=== PATIENT | female | born 1960 | race Caucasian/White ===

== ENCOUNTER → 2017-12-08 10:54 | Outpatient (CLI) | payer MEDICAID, SELFPAY ==
--- NOTE | 2017-12-08 11:00 | MRI_ITS ---
STUDY: MRI RIGHT KNEE REASON FOR EXAM: Right posterior knee pain for 5 months, no specific injury. TECHNIQUE: Standardized fat and water weighted pulse sequences were obtained in all 3 orthogonal planes. COMPARISON: None. FINDINGS: There is a complex tear of the posterior horn of the medial meniscus (proton-density sagittal images 30-38) including a radial component (T2 coronal images 15, 16). There is peripheral subluxation of the medial meniscus. There is arthrosis of the medial femorotibial compartment with small marginal osteophytes and partial-thickness chondral loss (T2 sagittal image 19). There is mild subchondral bone edema of the medial tibial plateau and medial femoral condyle (T2 coronal images 16-22), a stress phenomenon. Normal medial collateral ligamentous complex (MCL). Normal distal semimembranosus, gracilis and semitendinosus tendons. Normal lateral meniscus. Normal hyaline cartilage of the lateral femorotibial compartment. Normal lateral femoral condyle and tibial plateau. Normal proximal tibiofibular articulation. Normal lateral collateral (fibular) ligament. Normal popliteus tendon. Normal biceps femoris tendon. There is a mesial osteophyte of the lateral femoral condyle abutting the anterior cruciate ligament (series 8 images 11, 12) without morphologic abnormality of the ligament. Normal posterior cruciate ligament (PCL). Normal congruent patellofemoral articulation. There is arthrosis of the patellofemoral compartment with partial-thickness chondral loss (T2 sagittal image 15) and a small subchondral cyst of the lateral patellar facet. Normal medial and lateral patellar retinaculum. Normal visualized quadriceps tendon. Normal patellar tendon. Normal Hoffa's fat pad. There is a moderate-sized joint effusion. There is edema in the subcutis adipose space. There is a minimal popliteal cyst (T2 coronal image 8). The otherwise visualized osseous structures are unremarkable. MRI/Lower Ext Joint Only (Routine) IMPRESSION: Medial meniscal tear. Arthrosis of the medial femorotibial and patellofemoral compartments. Mild subchondral bone edema of the medial tibial plateau and medial femoral condyle, a stress phenomenon. Joint effusion. Electronically Signed: Gadiel Campos MD at 13:25 EDT Tel , Service support ,
== END ==
PROVIDERS: Family Provider Family Medicine; PCP Family Medicine; Visit Provider Family Medicine
DX: M25.561 Pain in right knee (principal)
CPT/HCPCS: 73721

== ENCOUNTER → 2018-06-22 10:18 | Outpatient (CLI) | payer MEDICAID, SELFPAY ==
[2018-06-22 12:18] LABS: Hematocrit 42.5 % (37-47); Hemoglobin 13.8 g/dl (12.0-15.0); Mean Corp Hgb Conc 32.5 g/gl (32-36); Mean Corpuscular Hgb 29.7 pg (27.0-32.0); Mean Corpuscular Volume 91.4 fL (81-99); Platelet Count 171 K/mm3 (150-450); RBC Distribution Width SD 43.1 fl (35.1-43.9); Red Blood Count 4.65 M/mm3 (4.2-5.4); White Blood Count 5.5 K/mm3 (4.4-11.0)
[2018-06-22 12:19] LABS: Absolute Lymphocyte Count 1.53 X10^3/ul (0.83-4.51); Absolute Neutrophil Count 3.6 X10^3/uL (2.0-7.7); Basophil# 0.03 X10^3/uL; Basophil% 0.5 % (0-1); Eosinophil# 0.07 X10^3/uL; Eosinophils% 1.3 % (0-5); Lymphocyte # 1.53 X10^3/ul (4.0); Lymphocyte % 27.7 % (19-41); Monocyte# 0.33 X10^3/uL; Neutrophil # 3.56 X10^3/uL (2.7-7.7); Neutrophil % 64.5 % (47-70); POSITIVE COUNT NO; POSITIVE DIFFERENTIAL NO; POSITIVE MORPHOLOGY NO
[2018-06-22 13:00] LABS: T3 Total - Triiodothyronine 1.01 ng/mL (0.6-1.81)
[2018-06-22 13:05] LABS: ALB/GLOB Ratio 1.2 RATIO (0.9-2.4); AST(SGOT) 29 U/L (15-37); Alanine Aminotransfer ALT/SGPT 34 U/L (13-56); Albumin, Serum 3.8 g/dL (3.2-5.0); Alkaline Phosphatase 104 U/L (45-117); Anion Gap 6 (5-15); BUN 11 mg/dL (7-18); BUN/Creat Ratio 12.4 RATIO (10-20); Calcium,Total 8.9 mg/dL (8.5-10.1); Chloride 99 mmol/L (98-107); Cholesterol 165 mg/dL (200); Creatinine, Serum 0.89 mg/dL (0.55-1.02); EST Glomerular Filtration Rate 69 mL/min (>60); Est Glom Filt Rate - Afr Amer 84 mL/min (>60); Globulin 3.3 g/dL (2.2-4.2); Glucose 218 mg/dL (74-106); High Density Lipoprotein 33 mg/dL; Potassium 4.2 mmol/L (3.5-5.1); Protein, Total 7.1 g/dL (6.4-8.2); Sodium Level 132 mmol/L (136-145); T4 Free Direct 1.35 ng/dL (0.76-1.46); Thyroid Stim Hormone (TSH) 1.94 uIU/mL (0.358-3.74); Triglycerides 180 mg/dL; Very Low Density Lipoprotein 36 mg/dL (5-40)
== END ==
PROVIDERS: Family Provider Family Medicine; PCP Family Medicine; Referring Provider Family Medicine; Visit Provider Family Medicine
DX: E11.9 Type 2 diabetes mellitus without complications (principal); E03.9 Hypothyroidism, unspecified; E78.5 Hyperlipidemia, unspecified; Z51.81 Encounter for therapeutic drug level monitoring
CPT/HCPCS: 36415; 80053; 80061; 84439; 84443; 84480; 85025

== ENCOUNTER → 2018-07-22 07:28 | Outpatient (CLI) | payer MEDICAID, SELFPAY ==
--- NOTE | 2018-07-22 07:31 | BI_ITS ---
MAMMOGRAPHY - BILATERAL SCREENING REASON FOR EXAM: Female, 58 years old. Routine annual screening examination. PERTINENT HISTORY: Aunt with breast cancer. TECHNIQUE: Digital bilateral breast marlo (3D mammographic acquisition) in the CC and MLO projections. 2-D mediolateral oblique (MLO) and craniocaudad (CC) views of both breasts were obtained. CAD: Full Field Digital Mammography with Computer Added Detection was performed. COMPARISON: Comparison is made with prior examination dated August 22, 2015 and August 14, 2014. FINDINGS: Breast Composition: The breasts are heterogeneously dense, which may obscure small masses. There are no dominant masses or suspicious calcifications. Stable benign-appearing bilateral axillary lymph nodes. No other significant abnormalities are identified. There has been no significant change since the prior study. BI/SCREENING MAMM (CAD), BILAT IMPRESSION: Stable bilateral screening mammogram. Yearly follow-up mammogram recommended. (A) ASSESSMENT CATEGORY: BIRADS Category 2: Benign. A letter regarding these results will be sent to the patient by the facility within 30 days. Approximately 10% of breast cancers are not detected by mammography. A normal mammogram should not delay biopsy of a clinically suspicious abnormality. [id number] Electronically Signed: Cam Santana MD at 14:31 EST Tel [phone], Service support ,
== END ==
PROVIDERS: Family Provider Family Medicine; PCP Family Medicine; Referring Provider Family Medicine; Visit Provider Family Medicine
DX: Z12.31 Encounter for screening mammogram for malignant neoplasm of breast (principal)
CPT/HCPCS: 77063; 77067

== ENCOUNTER → 2018-08-19 13:41 | Outpatient (CLI) | payer MEDICAID, SELFPAY | PROVIDERS: Family Provider Family Medicine; PCP Family Medicine; Referring Provider Surgery; Visit Provider Surgery | DX: Z53.9 Procedure and treatment not carried out, unspecified reason (principal) ==

== ENCOUNTER 2018-12-19 06:58 | Day surgery (SDC) | payer MEDICAID, SELFPAY ==
[2018-12-19 07:29] VITALS: BP 149/97; PULSE 75; RESP 16; TEMP 36.1; O2SAT 96; BMI 40.5
[2018-12-19 07:50] LABS: Bedside Glucose 110 mg/dL (70-110)
--- NOTE | 2018-12-19 08:15 | PCM.HP.STD ---
Problem List (1) Family history of colon cancer Status: Acute History of Present Illness Date of Admission: 12/19/18 The patient is a 58 year old F evaluation for colonoscopy. Patient had her last colonoscopy done approximately [address] Blount at the [facility]. She has a family history of a brother with colon cancer. Her last colonoscopy was negative. Past Medical History Past Medical History (Chronic Problems): Chronic Problems (Last Reviewed 10/07/17 @ 10:43 by Natalie Motta) History of depression (Chronic) Dyslipidemia (Chronic) HTN (hypertension) (Chronic) Hypothyroidism (Chronic) Medical History: Medical History (Last Reviewed 12/19/18 @ 08:16 by Josep Goldstein MD) Diabetes E11.9 [place] teeth extracted K08.499 1977 Allergies acetaminophen [From Vicodin] Allergy (Mild, Verified 12/14/18 15:10) Vomiting hydrocodone [From Vicodin] Allergy (Mild, Verified 12/14/18 15:10) Vomiting lisinopril Allergy (Mild, Verified 12/14/18 15:10) cough sulfadimethoxine Allergy (Mild, Verified 12/14/18 15:10) blisters Home Medications: Ambulatory Orders Medication Instructions Recorded carvedilol 6.25 mg tablet 6.25 mg PO BID 10/07/17 citalopram 20 mg tablet 20 mg PO QDAY 10/07/17 levothyroxine 75 mcg capsule 137 mcg PO DAILY 10/07/17 mecobalamin-levomefolate 1 tab PO DAILY 10/07/17 calcium-pyridoxal phos 3 mg-35 mg-2 mg tablet simvastatin 20 mg tablet 20 mg PO QAM 10/07/17 Bupropion HCl [Wellbutrin Sr] 100 mg PO DAILY 07/22/18 Metformin HCl [Metformin HCl ER] 500 mg PO BID 07/22/18 Surgical History: Surgical History (Last Reviewed 12/19/18 @ 08:16 by Josep Goldstein MD) Previous back surgery Z98.890 L4, L5 repaired by laser s/p ablation uterine 07/2010 Surgical History: Surgery Smoking Status: Never smoker Tobacco Use: Non-smoker - *Family History Sibling Family History: Family History (Last Updated 10/07/17 @ 10:46 by Natalie Motta) Brother Myocardial infarction Colon cancer Father Prostate cancer Myocardial infarction Mother Myocardial infarction Review of Systems Constitutional: Denies: Chills, Fever, Weight Change Cardiovascular: Denies: Chest Pain, Chest Pressure, Chest Tightness, Palpitations Respiratory: Denies: Cough, Hemoptysis, Shortness of breath at rest, Shortness of breath upon exertion, Wheezing Gastrointestinal: Denies: Abdominal Pain, Constipation, Diarrhea, Hematemesis, Nausea, Melena, Vomiting VTE Information - Inpt Only VTE Present on Admission: No VTE Mechan Device Prophylaxis: None VTE Pharm Prophylaxis ordered?: No Reason prophylaxis not ordered:: Treatment Not Indicated Patient Problems: Active and Suspected Problems (Last Reviewed 10/07/17 @ 10:43 by Natalie Motta) Family history of colon cancer (Acute) - Physical Exam General: Alert, Oriented x3 Neck: Supple, No JVD Lungs: Clear to auscultation Cardiovascular: Regular rate, Regular Rhythm, No murmurs Abdomen: Bowel Sounds Present, Soft, Non Tender, Non-Distended, Obese Vital Signs Temp Pulse Resp BP Pulse Ox 97 F L 75 16 149/97 H 96 12/19/18 07:29 12/19/18 07:29 12/19/18 07:29 12/19/18 07:29 12/19/18 07:29 Oxygen Delivery Method Room Air Weight: 251 lb 5.231 oz Body Mass Index (BMI) 40.5 POC Glucose 12/19/18 07:44 POC Glucose 110 Assessment/Plan All Active Problems (Last Reviewed 10/07/17 @ 10:43 by Natalie Motta) Family history of colon cancer (Acute) Plan will be to perform a colonoscopy on the patient. Risk benefits have been reviewed with the patient the patient agrees to proceed. They include bleeding possible injury to the colon which could require further surgeries or possible complications from anesthesia.
--- NOTE | 2018-12-19 08:30 | COLBX_PTH ---
PATIENT: BRANDON CARRASQUILLO LOC: EN U#:[id number] AGE/SX: 58/F ROOM: RE12/19/[address]: Dr. Josep Goldstein MD : 1960 BED: DIS: 12/19/2018 SPEC #: [id number] RECD: 12/19/18 10:05 STATUS: YUMIKO REAlex #: [id number] POLA: 12/19/18 08:[address]: Josep Goldstein DEPT: SURGICAL PATHOLOGY RECD BY: Oz Coates ENTERED: 12/19/18 10:19 SP TYPE: COLON BX OTHR DR: Dr. Hermelinda Major, DO Tissues: Ascending colon Procedures: Surgery Specimen Level IV HEADER OPERATION: Colonoscopy (MAC) PRE-OP DIAGNOSIS: Screening, family history colon CA TISSUE SUBMITTED: Ascending polyp MICROSCOPIC DIAGNOSIS Ascending colon, biopsy: Fragments of tubular adenoma. AM:cody 12/20/18 MICROSCOPIC DESCRIPTION Slides are reviewed. GROSS DESCRIPTION Received in fixative is one container labeled with the patient's name and designated ascending polyp. The specimen consists of multiple irregular fragments of light joaquin soft tissue that in aggregate measure 1.5 x 0.4 x 0.3 cm. The specimen is totally submitted in one cassette. / SJ:cody 12/19/18 TC:5 CPT: 79781
[2018-12-19 08:57] VITALS: BP 149/97; BP 158/86; PULSE 75; RESP 16; TEMP 36.8; O2SAT 95
--- NOTE | 2018-12-19 08:58 | OP.ENDO_ITS ---
12/19/2018 Hermelinda Major [address] [place] [address] Re : Colonoscopy procedure for Inocencia Ortegawater Dear Dr. aMjor This procedure was performed on Wednesday, December 19, 2018. My impressions and recommendations are as follows: Impressions : - One 15 mm polyp in the ascending colon, removed with a hot snare. Resected and retrieved. Clips were placed. Injected. - Diverticulosis in the sigmoid colon. - Non-bleeding internal hemorrhoids. - The examination was otherwise normal. Recommendations : - Discharge patient to home. - Resume previous diet. - Continue present medications. - Await pathology results. - Repeat colonoscopy in 3 years for surveillance. - Return to my office in 1 week. My findings are described in the full procedure note, which is enclosed. If I can be of further assistance, please feel free to contact me at Doctor phone number(s): , Fax: [phone], Work: . Sincerely, MD Josep Grier MD 12/19/2018 8:57:20 AM This report has been signed electronically.
[2018-12-19 09:00] VITALS: BP 149/97; BP 157/86; PULSE 72; RESP 16; O2SAT 95
[2018-12-19 09:05] VITALS: BP 149/83; BP 149/97; PULSE 66; RESP 16; O2SAT 97
[2018-12-19 09:10] VITALS: BP 149/97; BP 162/87; PULSE 66; RESP 16; TEMP 36.2; O2SAT 96
[2018-12-19 09:55] VITALS: BP 149/97
== END 2018-12-19 09:56 | disposition home or self-care (01) ==
LOC: EN 06:58 → AC 06:59
PROVIDERS: Family Provider Family Medicine; PCP Family Medicine; Referring Provider Family Medicine; Visit Provider Surgery
PROC: 0DJD8ZZ Inspection of Lower Intestinal Tract, Via Natural or Artificial Opening Endoscopic (ICD-10-PCS; CPT 45378; principal; 2018-12-19 08:25)
DX: D12.2 Benign neoplasm of ascending colon (principal); Z80.0 Family history of malignant neoplasm of digestive organs; I10 Essential (primary) hypertension; E11.9 Type 2 diabetes mellitus without complications; E03.9 Hypothyroidism, unspecified; E78.5 Hyperlipidemia, unspecified; F32.9 Major depressive disorder, single episode, unspecified; F41.9 Anxiety disorder, unspecified; G47.30 Sleep apnea, unspecified; Z79.84 Long term (current) use of oral hypoglycemic drugs; Z79.899 Other long term (current) drug therapy; K57.30 Diverticulosis of large intestine without perforation or abscess without bleeding; K64.8 Other hemorrhoids
CPT/HCPCS: 45380; 82962; 88305; J7120; J1610

== ENCOUNTER → 2019-08-07 09:33 | Outpatient (CLI) | payer MEDICAID, SELFPAY ==
--- NOTE | 2019-08-07 09:37 | RAD_ITS ---
STUDY: X-RAY - RIGHT KNEE REASON FOR EXAM: Knee pain, history of surgery. TECHNIQUE: 4 view(s) of the knee. COMPARISON: None. FINDINGS: Normal visualized distal femur. There is subchondroplasty of the right medial tibial plateau. Normal proximal tibiofibular articulation. There is moderate to severe joint space narrowing of the medial femorotibial compartment. Normal lateral femorotibial compartment. There is moderate joint space narrowing of the patellofemoral articulation. There is a small joint effusion. RAD/Knee 4 or More Views IMPRESSION: Arthrosis of the medial femorotibial and patellofemoral compartments. Small joint effusion. Electronically Signed: Gadiel Campos MD at 13:27 EST Tel , Service support ,
--- NOTE | 2019-08-07 09:37 | RAD_ITS ---
STUDY: X-RAY - LEFT KNEE REASON FOR EXAM: Left knee pain. TECHNIQUE: 4 view(s) of the knee. COMPARISON: Radiographs 08/10/2014. FINDINGS: Normal visualized distal femur. Normal visualized proximal tibia and fibula. Normal proximal tibiofibular articulation. There is moderately severe joint space narrowing of the medial femorotibial compartment, increased since the prior study. Normal lateral femorotibial compartment. Normal patellofemoral articulation. There is a small joint effusion. RAD/Knee 4 or More Views IMPRESSION: Arthrosis of the medial femorotibial compartment. Small joint effusion. Electronically Signed: Gadiel Campos MD at 13:27 EST Tel , Service support ,
[2019-08-07 12:20] LABS: Absolute Lymphocyte Count 1.88 X10^3/uL (0.83-4.51); Absolute Neutrophil Count 4.2 X10^3/uL (2.0-7.7); Basophil# 0.04 X10^3/uL; Basophil% 0.6 % (0-1); Eosinophils% 2.9 % (0-5); Hematocrit 41.1 % (37-47); Lymphocyte # 1.88 X10^3/ul (4.0); Lymphocyte % 27.3 % (19-41); Mean Corp Hgb Conc 31.6 g/dL (32-36); Mean Corpuscular Hgb 30.4 pg (27.0-32.0); Mean Corpuscular Volume 96.3 fL (81-99); Mean Platelet Vol. 10.6 fl (6.2-12.0); Monocyte# 0.52 X10^3/uL; Monocyte% 7.6 % (0-10); NRBC Flagged by Analyzer 0 % (0-5); Neutrophil # 4.22 X10^3/uL (2.7-7.7); Neutrophil % 61.3 % (47-70); Platelet Count 215 K/mm3 (150-450); RBC Distribution Width CV 12.8 % (11.6-14.6); RBC Distribution Width SD 45.2 fl (35.1-43.9); Red Blood Count 4.27 M/mm3 (4.2-5.4); White Blood Count 6.9 K/mm3 (4.4-11.0)
[2019-08-07 12:34] LABS: Vitamin D,25 Hydroxy 17.2 ng/mL (29.95-100.01)
[2019-08-07 12:41] LABS: Microalbumin,Random Urine 7.8 mg/L (NO RANGE EST.); Microalbumin:Creatinine Ratio 5.6 mg/g CRE (<30 mg/g CRE)
[2019-08-07 12:46] LABS: ALB/GLOB Ratio 1.1 RATIO (0.9-2.4); AST(SGOT) 20 U/L (15-37); Alanine Aminotransfer ALT/SGPT 27 U/L (13-56); Albumin, Serum 3.9 g/dL (3.2-5.0); Alkaline Phosphatase 124 U/L (45-117); Anion Gap 8 (5-15); BUN 13 mg/dL (7-18); BUN/Creat Ratio 12.4 RATIO (10-20); Calcium,Total 9.1 mg/dL (8.5-10.1); Chloride 101 mmol/L (98-107); Cholesterol 204 mg/dL (200); Creatinine, Serum 1.05 mg/dL (0.55-1.02); EST Glomerular Filtration Rate 57 mL/min (>60); Est Glom Filt Rate - Afr Amer 69 mL/min (>60); Free T3 2.4 pg/mL (2.18-3.98); Globulin 3.6 g/dL (2.2-4.2); Glucose 186 mg/dL (74-106); High Density Lipoprotein 33 mg/dL; Potassium 3.9 mmol/L (3.5-5.1); Protein, Total 7.5 g/dL (6.4-8.2); Sodium Level 139 mmol/L (136-145); T4 Free Direct 0.79 ng/dL (0.76-1.46); Thyroid Stim Hormone (TSH) 7.35 uIU/mL (0.358-3.74); Triglycerides 422 mg/dL
== END ==
PROVIDERS: Family Provider Family Medicine; PCP Family Medicine; Referring Provider Family Medicine; Visit Provider Family Medicine
DX: E11.9 Type 2 diabetes mellitus without complications (principal); E03.9 Hypothyroidism, unspecified; E78.5 Hyperlipidemia, unspecified; E55.9 Vitamin D deficiency, unspecified; M25.561 Pain in right knee; M25.562 Pain in left knee
CPT/HCPCS: 36415; 73564; 80053; 80061; 82043; 82306; 82570; 84439; 84443; 84481; 85025

== ENCOUNTER → 2019-09-01 09:41 | Outpatient (CLI) | payer MEDICAID, SELFPAY ==
--- NOTE | 2019-09-01 09:45 | STEWCON_ITS ---
Reason For Study: Chest Pain; Dyspnea Stress Results Protocol: Dobutamine Stress Echo With Definity Maximum Predicted HR: 161 bpm Target HR: 137 bpm % Maximum Predicted HR: 86 % DurationHeart Rate Stage (mm:ss) (bpm) BP Comment Baseline 73 143/94No Chest Pain; 5 ML Diluted Definity Given DSE 10 MCG 3:08 58 135/73No Chest Pain DSE 20 MCG 3:00 68 182/73No Chest Pain DSE 30 MCG 3:00 114 165/73No Chest Pain; Atropine 0.25 MG IVP DSE 40 MCG 3:22 139 187/90No Chest Pain; Atropine 0.75 MG IVP Recovery 100 108/72No Chest Pain Stress Duration: 12:30 mm:ss Maximum Stress HR: 139 bpm METS: 1 Baseline Echocardiogram Findings Stress Echo Wall motion Data Resting WM Intermediate WM Stress WM Interpretation Summary Dobutamine stress echocardiogram. 59-year-old lady with a history of hypertension and hyperlipidemia. Stress protocol: Resting EKG demonstrates normal sinus rhythm with a rate of 69 bpm. Resting blood pressure is 143/94 mmHg. Dobutamine was infused per usual protocol starting at 10 mcg/kg/min increasing to a peak of 40 mcg/kg/min. Patient required 1 mg of intravenous atropine given 9.25 mg aliquots. The patient maintained sinus rhythm throughout the recording with occasional premature ventricular complexes present. The maximum heart rate attained was 139 bpm which was 89% of maximum predicted heart rate the maximum workload was 1 metabolic equivalent. The resting blood pressure was 143/94 peak blood pressure 187/90 mmHg. No clinical angina was noted. There were no ST or T wave changes noted suggest ischemia. Stress echocardiogram. Rest and stress dobutamine images were obtained and also low dose. At rest the images were obtained with Definity enhancement and were noted to be 55%. At peak exercise and dobutamine infusion there was thickening of all [place] and reduction of the ventricular cavity size with peak ejection fraction of 65 to 70%. No wall motion abnormalities were noted. Conclusion: Normal dobutamine stress echo with no evidence of ischemia with Definity enhancement No arrhythmias noted. Ordering Physician: Hermelinda Major Referring Physician: Brian Gaston Performed By: Melany Luna, DWAINE, RVT
== END ==
PROVIDERS: Family Provider Family Medicine; PCP Family Medicine; Referring Provider Family Medicine; Visit Provider Family Medicine
DX: R07.9 Chest pain, unspecified (principal); R06.00 Dyspnea, unspecified
CPT/HCPCS: 93017; 93350; J7040; Q9957; A4216; C8928

== ENCOUNTER → 2020-03-28 | Outpatient (CLI) | payer MEDICAID, SELFPAY ==
--- NOTE | 2020-03-28 14:34 | BI_ITS ---
MAMMOGRAPHY - BILATERAL SCREENING REASON FOR EXAM: Female, 60 years old. Routine annual screening examination. PERTINENT HISTORY: Grandmother with breast cancer. Aunt with breast cancer. TECHNIQUE: Digital bilateral breast eli (3D mammographic acquisition) in the CC and MLO projections. 2-D mediolateral oblique (MLO) and craniocaudad (CC) views of both breasts were obtained. CAD: Full Field Digital Mammography with Computer Added Detection was performed. COMPARISON: Comparison is made with prior study dated July 22, 2018 and August 22, 2015. FINDINGS: Breast Composition: The breasts are heterogeneously dense, which may obscure small masses. There are no dominant masses or suspicious calcifications. Stable benign-appearing bilateral axillary lymph nodes. No other significant abnormalities are identified. There has been no significant change since the prior study. BI/SCREEN MAMM (CAD) W/ELI BILAT IMPRESSION: Stable bilateral screening mammogram. Yearly follow-up mammogram recommended. (A) ASSESSMENT CATEGORY: BIRADS Category 2: Benign. A letter regarding these results will be sent to the patient by the facility within 30 days. Approximately 10% of breast cancers are not detected by mammography. A normal mammogram should not delay biopsy of a clinically suspicious abnormality. [id number] Electronically Signed: Cam Santana, at 15:30 EDT , Service support ,
== END | disposition home or self-care (01) ==
PROVIDERS: PCP Family Medicine; Referring Provider Family Medicine; Visit Provider Family Medicine
DX: Z12.31 Encounter for screening mammogram for malignant neoplasm of breast (principal)
CPT/HCPCS: 77063; 77067

== ENCOUNTER → 2020-07-30 14:42 | Outpatient (CLI) | payer MEDICAID, SELFPAY ==
[2020-07-30 18:33] LABS: Cholesterol 209 mg/dL (200); Free T3 2.7 pg/mL (2.18-3.98); High Density Lipoprotein 35 mg/dL; T4 Free Direct 1.11 ng/dL (0.76-1.46); Thyroid Stim Hormone (TSH) 0.09 uIU/mL (0.358-3.74); Triglycerides 291 mg/dL; Very Low Density Lipoprotein 58 mg/dL (5-40)
[2020-07-30 18:42] LABS: Hemoglobin A1c 6.2 % (3.8-5.6)
== END ==
PROVIDERS: PCP Family Medicine; Referring Provider Family Medicine; Visit Provider Family Medicine
DX: E03.9 Hypothyroidism, unspecified (principal); E78.5 Hyperlipidemia, unspecified; E11.9 Type 2 diabetes mellitus without complications
CPT/HCPCS: 36415; 80061; 83036; 84439; 84443; 84481

== ENCOUNTER 2020-08-23 15:25 | Emergency (ER) | payer MEDICAID, SELFPAY ==
[2020-08-23 15:26] VITALS: BP 158/99; PULSE 68; RESP 16; TEMP 36.3; O2SAT 98; BMI 43.7
--- NOTE | 2020-08-23 15:57 | RAD_ITS ---
STUDY: X-RAY - PELVIS REASON FOR EXAM: Female, 60 years old. Fall x3 weeks ago, pain into left leg. TECHNIQUE: One view of the pelvis was obtained. COMPARISON: None. FINDINGS: There is a non-specific bowel gas pattern. Normal visualized soft tissue structures. Normal bilateral iliac wings, sacroiliac joints and visualized sacrum. Normal visualized bilateral superior and inferior pubic rami. Normal pubic symphysis. Normal ischial tuberosities. Normal visualized right femoral head. Normal right acetabulum. There is mild articular joint space narrowing of the right hip. Normal visualized left femoral head. Normal left acetabulum. There is mild articular joint space narrowing of the left hip. RAD/Pelvis 1 or 2 Views IMPRESSION: Negative for fracture or dislocation. Mild degenerative narrowing of the hips bilaterally. Electronically Signed: Laure Dubois MD at 16:39 EST , Service support ,
--- NOTE | 2020-08-23 15:57 | ED.VIS.GEN ---
History of Present Illness Chief Complaint: Lower Extremity Injury Informant: Patient Onset: Weeks Context: Gradual Onset Current Severity: Moderate Maximum Severity: Moderate Narrative: Patient presents with pain to the left hip/buttock region. About 2 and half weeks ago she tripped over an air compressor and fell face forward. She states her feet were caught up in the air on the air compressor. For the last week to week and a half she has had sharp pain in the lower buttock region on the left. She states her thigh and calf feel achy but she does not that the pain shoots down her leg. She does report spasms in her leg. No paresthesias or weakness. - Past Medical History (1) Diabetes Status: Chronic (2) Dyslipidemia Status: Chronic (3) HTN (hypertension) Status: Chronic (4) History of depression Status: Chronic (5) Hypothyroidism Status: Chronic Past Medical History - Allergies and Home Meds Allergies/Adverse Reactions: Allergies acetaminophen [From Vicodin] Allergy (Mild, Verified 08/23/20 15:28) Vomiting hydrocodone [From Vicodin] Allergy (Mild, Verified 08/23/20 15:28) Vomiting lisinopril Allergy (Mild, Verified 08/23/20 15:28) cough sulfadimethoxine Allergy (Mild, Verified 08/23/20 15:28) blisters Primary Care Physician: Hermelinda Major DO [Primary Care Provider] - Surgical History: - - Laminectomy Smoking Status: Never smoker Review of Systems General: Denies: Chills, Fever Eyes: Denies: Visual changes - bilaterally ENT: Denies: Bilateral ear pain Cardiovascular: Denies: Chest pain Respiratory: Denies: Dyspnea, Cough Gastrointestinal: Denies: Abdominal pain, Vomiting, Diarrhea Musculoskeletal: Reports: Extremity Pain. Denies: Neck pain, Back pain Skin: Denies: Rash, Wounds Neurological: Denies: Headache Hematologic: Denies: Easy bruising, Easy bleeding Allergy: Denies: Uticaria Physical Exam Vital Signs/Narrative: Vital Signs Temp Pulse Resp BP Pulse Ox 08/23/20 15:26 97.3 F L 68 16 158/99 H 98 Inital Vital Signs reviewed: Yes General: Well nourished, Well developed Head: Normocephalic ENT: Moist mucous membranes Neck: Supple Cardiovascular: Regular rate, Regular rhythm Respiratory: No distress, CTA bilaterally Abdomen: Soft, Nontender Back: Nontender Extremities: - - No reproducible tenderness. Skin: Normal color Neurological: Alert, Oriented x3, Normal Strength, Normal Sensation Psychological: Normal affect Diagnostic/Tx/Re-eval Impressions Pelvis X-Ray 08/23/20 15:57 IMPRESSION: Negative for fracture or dislocation. Mild degenerative narrowing of the hips bilaterally. Electronically Signed: Laure Dubois MD at 16:39 EST , Service support , 08/23/20 15:57 Pelvis 1 or 2 Views [RAD] Stat - Medical Decision Making Patient was given Naprosyn, Flexeril, and prednisone. Pelvis x-ray is interpreted by myself with no evidence of fracture. Radiologist interpretation is also reviewed. Patient's symptoms are consistent with sciatica. She will be treated with naproxen, Flexeril, prednisone burst, with a few Percocet for breakthrough pain. She already has an appointment to see her PCP on the . ED Disposition - Plan for ED Patient: Disposition: Home or Assisted Living Diagnosis: Sciatica Instructions: ED Sciatica Prescriptions: Prednisone [Deltasone] 40 mg PO DAILY #10 tab Transmission Status: Pending to [id number] cycloBENZAPRine HCl [Flexeril] 10 mg PO TID PRN #20 tab PRN Reason: Muscle Spasm Transmission Status: Pending to [id number] Naproxen [Naprosyn] 500 mg PO BID PRN PRN #20 tab PRN Reason: Pain Score 4-10 Transmission Status: Pending to [id number] Oxycodone HCl/Acetaminophen [Percocet 5/325] 1 tablet PO Q6H PRN PRN 3 Days #10 tablet PRN Reason: Pain Transmission Status: Sent to [id number] Referrals: Hermelinda Major DO [Primary Care Provider] - Keep Rossy appointment
[2020-08-23] MEDS: predniSONE 20 MG Tablet 60 MG PO (16:06)
[2020-08-23] MEDS: Naproxen 500 MG Tablet PO (16:06)
[2020-08-23] MEDS: cycloBENZAPRine HCl 10 MG Tablet PO (16:06)
== END 2020-08-23 17:22 | disposition home or self-care (01) ==
PROVIDERS: Emergency Provider Emergency Medicine; PCP Family Medicine
DX: M54.32 Sciatica, left side (principal); E11.9 Type 2 diabetes mellitus without complications; E78.5 Hyperlipidemia, unspecified; I10 Essential (primary) hypertension
CPT/HCPCS: 72170; 99283

== ENCOUNTER → 2021-04-24 12:52 | Outpatient (CLI) | payer MEDICAID, SELFPAY | PROVIDERS: PCP Family Medicine; Visit Provider Family Medicine | DX: N30.00 Acute cystitis without hematuria (principal) | CPT/HCPCS: 87086; 87088 ==

== ENCOUNTER → 2021-05-08 15:27 | Outpatient (CLI) | payer MEDICAID, SELFPAY ==
--- NOTE | 2021-05-08 15:30 | BI_ITS ---
MAMMOGRAPHY - BILATERAL SCREENING REASON FOR EXAM: Female, 61 years old. Routine annual screening examination. PERTINENT HISTORY: Grandmother with breast cancer. Aunt with breast cancer. TECHNIQUE: Digital bilateral breast eli (3D mammographic acquisition) in the CC and MLO projections. 2-D mediolateral oblique (MLO) and craniocaudad (CC) views of both breasts were obtained. CAD: Full Field Digital Mammography with Computer Added Detection was performed. COMPARISON: Comparison is made with prior examination dated 03/28/2020 and 07/22/2018. FINDINGS: Breast Composition: The breasts are heterogeneously dense, which may obscure small masses. There are no dominant masses or suspicious calcifications. Stable benign-appearing bilateral axillary lymph nodes. No other significant abnormalities are identified. There has been no significant change since the prior study. BI/SCRN MAMM (CAD)W/ELI BILAT IMPRESSION: Stable bilateral screening mammogram. Yearly follow-up mammogram recommended. (A) ASSESSMENT CATEGORY: BIRADS Category 2: Benign. A letter regarding these results will be sent to the patient by the facility within 30 days. Approximately 10% of breast cancers are not detected by mammography. A normal mammogram should not delay biopsy of a clinically suspicious abnormality. [id number] Electronically Signed: Cam Santana MD at 7:22 EDT , Service support ,
== END ==
PROVIDERS: PCP Family Medicine; Referring Provider Family Medicine; Visit Provider Family Medicine
DX: Z12.31 Encounter for screening mammogram for malignant neoplasm of breast (principal)
CPT/HCPCS: 77063; 77067

== ENCOUNTER → 2022-05-12 | Outpatient (CLI) | payer MEDICAID, SELFPAY ==
--- NOTE | 2022-05-12 13:34 | BI_ITS ---
MAMMOGRAPHY - BILATERAL SCREENING REASON FOR EXAM: Female, 62 years old. Routine annual screening examination. PERTINENT HISTORY: Grandmother with breast cancer. Aunt with breast cancer. TECHNIQUE: Digital bilateral breast eli (3D mammographic acquisition) in the CC and MLO projections. 2-D mediolateral oblique (MLO) and craniocaudad (CC) views of both breasts were obtained. CAD: Full Field Digital Mammography with Computer Added Detection was performed. COMPARISON: Comparison is made with prior study dated 05/08/2021 and 03/28/2020. FINDINGS: Breast Composition: The breasts are heterogeneously dense, which may obscure small masses. There are no dominant masses or suspicious calcifications. Stable benign appearing bilateral axillary lymph nodes. No other significant abnormalities are identified. There has been no significant change since the prior study. BI/SCRN MAMM (CAD)W/ELI BILAT IMPRESSION: Stable bilateral screening mammogram. Yearly follow-up mammogram recommended. (A) ASSESSMENT CATEGORY: BIRADS Category 2: Benign. A letter regarding these results will be sent to the patient by the facility within 30 days. Approximately 10% of breast cancers are not detected by mammography. A normal mammogram should not delay biopsy of a clinically suspicious abnormality. [id number] Electronically Signed: Cam Santana MD at 14:51 EDT ,
== END | disposition home or self-care (01) ==
LOC: OPBI 13:32
PROVIDERS: PCP Family Medicine; Visit Provider Family Medicine
DX: Z12.31 Encounter for screening mammogram for malignant neoplasm of breast (principal)
CPT/HCPCS: 77063; 77067

== ENCOUNTER 2022-05-24 13:32 | Emergency (ER) | payer MEDICAID, SELFPAY ==
[2022-05-24 13:33] VITALS: BP 167/96; PULSE 88; RESP 16; TEMP 36.9; O2SAT 99; BMI 41.9
--- NOTE | 2022-05-24 14:57 | ED.VIS.LOWEX ---
HPI History of Present Illness HPI Narrative: Patient presents with right knee injury that occurred yesterday. Patient states she was carrying something down some steps she states her right knee hyperflexed and she had her foot underneath of her buttocks. Patient describes her pain as burning. Patient states the pain is worse over the anterior aspect of her right knee. Patient states it is worse with ambulation and with flexion. Patient states it is better with ice and rest. Patient denies any paresthesias or weakness. Patient denies any head injury or loss of consciousness. Patient denies any other injuries. Chief Complaint: Lower Extremity Injury Informant: patient Occured/Mechanism Mechanism/Context: Yes fall Onset/Context/Timing Onset: Yesterday Context: Sudden Onset Timing: Continuous Quality of Pain: Burning Location: Right knee Worsened by: Flexion, ambulation Relieved by: Ice, rest Associated Symptoms Associated Symptoms: Negative for Parasthesia, Weakness or Loss of Funtion [facility] Medical History Back pain CPAP (continuous positive airway pressure) dependence Depression Diabetes Dyslipidemia Family history of colon cancer High cholesterol History of depression History of echocardiogram History of irregular heartbeat History of stress test HTN (hypertension) Hypothyroidism Neuropathy Non-smoker Normal stress echocardiogram Post-menopausal Sleep apnea Thyroid disease Wears glasses Home Medications carvedilol 6.25 mg tablet (Coreg) 6.25 mg PO BID 10/07/17 [History Last Taken 12/19/18 06:00] levothyroxine 75 mcg capsule 150 mcg PO DAILY 10/07/17 [History Last Taken 12/19/18 06:00] simvastatin 20 mg tablet 40 mg PO QAM 10/07/17 [History Last Taken Unknown] mecobalamin-levomefolate calcium-pyridoxal phos 3 mg-35 mg-2 mg tablet 1 tab PO BID 12/02/21 [History Last Taken Unknown] metformin 500 mg tablet,extended release 24 hr 500 mg PO BID 12/02/21 [History Last Taken Unknown] Allergy/AdvReac Type Severity Reaction Status Date / Time acetaminophen [From Vicodin] Allergy Mild Vomiting Verified 05/24/22 15:27 hydrocodone [From Vicodin] Allergy Mild Vomiting Verified 05/24/22 15:27 lisinopril Allergy Mild cough Verified 05/24/22 15:27 sulfadimethoxine Allergy Mild blisters Verified 05/24/22 15:27 Family History Brother Myocardial infarction Colon cancer Father Prostate cancer Myocardial infarction Mother Myocardial infarction Surgical History History of cardiac catheterization Hx of colonoscopy Hx of knee surgery Previous back surgery s/p ablation [place] teeth extracted Social History Smoking Status: Never smoker ROS ROS ED Constitutional Constitutional ED: Denies chills or fever(s) Eyes Eyes: Denies blurry vision or change in vision ENT ENT ED: Denies rhinorrhea or sore throat Cardiovascular Cardiovascular: Denies chest pain or palpitations Respiratory/Chest Respiratory/Chest: Denies cough or dyspnea Gastrointestinal Gastrointestinal: Denies nausea or vomiting Genitourinary Genitourinary ED: Denies dysuria or hematuria Musculoskeletal Musculoskeletal: Denies back pain or neck pain Integumentary Denies abscess or rash Neurologic Neurologic: Denies headache(s) or weakness Allergic/Immunologic Allergic/Immunologic ED: Denies mouth swelling or urticaria EXAM Physical Exam Const Vital Signs: 05/24/22 13:33 Temperature 98.4 F Temperature Source Temporal Pulse Rate 88 Respiratory Rate 16 Blood Pressure 167/96 H Blood Pressure Mean 119 Pulse Ox 99 Oxygen Delivery Method Room Air Positive well nourished, well developed and obese General Appearance ED: well developed and NAD Nutritional Appearance: obese HEENT Reports moist mucous membranes Neck supple and no JVD Extremity normal to inspection Extremity Narrative: There is tenderness over the anterior aspect of the right knee. There is no edema or ecchymosis. There is no effusion. There is no bony crepitance or step-off. Extensor mechanism is intact. Range of motion was slightly limited in flexion of the right knee secondary to pain. There is guarding on examination. There is no laxity appreciated. Varus and valgus stress test were negative. Whitley's test was negative. Pedal pulses are equal bilaterally. Sensation was intact to light touch bilaterally in the lower extremities. Strength is 5/5 bilaterally in the lower extremities. General Extremety ED: Yes tenderness Neuro oriented x3, CN's II-XII intact bilaterally and no sensory deficits noted Sensorium / Orientation: alert Motor Exam: strength 5/5 throughout Psych mental status grossly normal Skin no rashes or lesions noted MDM MDM MDM Narrative Medical decision making narrative: X-rays of the right knee were obtained. There are 4 views. On my interpretation, there is no acute fracture or dislocation. There is no subluxation of the patella. Radiologist also interpreted the x-rays and agrees. Patient was advised of her findings. Patient was instructed to ice and elevate the right knee. Patient was instructed to follow-up with her primary care physician in 5 to 7 days. Patient was also instructed to follow-up with orthopedics in 5 to 7 days. Patient understood and was agreeable with the plan. All questions were answered. Radiography Diagnostic Testing: Clinical Impression(s) from Imaging Studies Knee X-Ray 05/24/22 15:10 IMPRESSION: No acute fracture or dislocation. Electronically Signed: Cy Almazan MD at 15:25 EDT , Discharge Plan Triage Chief Complaint: Lower Extremity Injury ED Provider: Slick Friedman Dx/Rx/DC Orders Clinical Impression: Right knee sprain, HTN (hypertension), Diabetes Instructions: ED Knee Sprain Prescriptions: No Action carvedilol [Coreg] 6.25 mg tablet 6.25 mg PO BID levothyroxine 75 mcg capsule 75 mcg capsule 150 mcg PO DAILY simvastatin 20 mg tablet 40 mg PO QAM metformin 500 mg tablet extended release 24 hr 500 mg PO BID Label Comments: TAKE 1 TABLET BY MOUTH TWICE A DAY Metanx 3-35-2 mg Tablet 1 tab PO BID Primary Care Provider: Hermelinda Major Referrals: Hermelinda Major DO [Primary Care Provider] - 3-5 Days Disposition Disposition: Home, Self Care
--- NOTE | 2022-05-24 15:10 | RAD_ITS ---
STUDY: X-RAY - RIGHT KNEE REASON FOR EXAM: Female, 62 years old. Injury/Pain TECHNIQUE: 4 view(s) of the knee. COMPARISON: 08/07/2019 FINDINGS: Normal visualized distal femur. No change in the sclerotic area of the in the subcondylar the surface of the medial tibial plateau consistent with prior subchondral plasty. Normal proximal tibiofibular articulation. There is moderate degenerative arthrosis of the medial femorotibial compartment with moderate joint space narrowing. There is mild degenerative arthrosis of the lateral femorotibial compartment. There is mild degenerative arthrosis of the patellofemoral articulation. The soft tissue structures are unremarkable. RAD/Knee 4 or More Views IMPRESSION: No acute fracture or dislocation. Electronically Signed: Cy Almazan MD at 15:25 EDT ,
== END 2022-05-24 15:55 | disposition home or self-care (01) ==
PROVIDERS: Emergency Provider Emergency Medicine; PCP Family Medicine; Visit Provider Emergency Medicine
DX: S83.91XA Sprain of unspecified site of right knee, initial encounter (principal); E11.9 Type 2 diabetes mellitus without complications; I10 Essential (primary) hypertension; E78.5 Hyperlipidemia, unspecified; Z79.899 Other long term (current) drug therapy; W19.XXXA Unspecified fall, initial encounter
CPT/HCPCS: 73564; 99282

== ENCOUNTER → 2023-05-10 | Outpatient (CLI) | payer MEDICAID, SELFPAY ==
[2023-05-10 12:05] LABS: Absolute Lymphocyte Count 1.63 X10^3/uL (0.83-4.51); Absolute Neutrophil Count 3.8 X10^3/uL (2.0-7.7); Basophil# 0.05 X10^3/uL; Basophil% 0.8 % (0-1); Eosinophil# 0.16 X10^3/uL; Eosinophils% 2.6 % (0-5); Hematocrit 39.1 % (37-47); Hemoglobin 12.6 g/dL (12.0-15.0); Lymphocyte # 1.63 X10^3/ul (0.83-4.51); Lymphocyte % 26.5 % (19-41); Mean Corp Hgb Conc 32.2 g/dL (32-36); Mean Corpuscular Hgb 29.6 pg (27.0-32.0); Mean Corpuscular Volume 91.8 fL (81-99); Monocyte# 0.46 X10^3/uL; Monocyte% 7.5 % (0-10); NRBC Flagged by Analyzer 0 % (0-5); Neutrophil # 3.83 X10^3/uL (2.7-7.7); Neutrophil % 62.3 % (47-70); Platelet Count 206 K/mm3 (150-450); RBC Distribution Width SD 43.6 fl (35.1-43.9); Red Blood Count 4.26 M/mm3 (4.2-5.4); White Blood Count 6.2 K/mm3 (4.4-11.0)
[2023-05-10 12:58] LABS: Microalbumin,Random Urine 9.1 mg/L (NO RANGE EST.)
[2023-05-10 12:59] LABS: ALB/GLOB Ratio 0.9 RATIO (0.9-2.4); AST(SGOT) 27 U/L (15-37); Alanine Aminotransfer ALT/SGPT 21 U/L (13-56); Albumin, Serum 3.6 g/dL (3.2-5.0); Alkaline Phosphatase 118 U/L (45-117); Anion Gap 5 (5-15); BUN 11 mg/dL (7-18); BUN/Creat Ratio 13.3 RATIO (10-20); Calcium,Total 8.9 mg/dL (8.5-10.1); Chloride 104 mmol/L (98-107); Cholesterol 171 mg/dL (200); Creatinine, Serum 0.83 mg/dL (0.55-1.02); EST Glomerular Filtration Rate 74 mL/min (>60); Est Glom Filt Rate - Afr Amer 90 mL/min (>60); Globulin 3.8 g/dL (2.2-4.2); Glucose 190 mg/dL (74-106); High Density Lipoprotein 39 mg/dL; Potassium 4.4 mmol/L (3.5-5.1); Protein, Total 7.4 g/dL (6.4-8.2); Sodium Level 137 mmol/L (136-145); T4 Free Direct 1.42 ng/dL (0.76-1.46); Thyroid Stim Hormone (TSH) 0.02 uIU/mL (0.358-3.74); Triglycerides 222 mg/dL; Very Low Density Lipoprotein 44 mg/dL (5-40)
== END | disposition home or self-care (01) ==
PROVIDERS: PCP Family Medicine; Referring Provider Family Medicine; Visit Provider Family Medicine
DX: E03.9 Hypothyroidism, unspecified (principal); E11.9 Type 2 diabetes mellitus without complications; E78.5 Hyperlipidemia, unspecified
CPT/HCPCS: 36415; 80053; 80061; 82043; 82570; 84439; 84443; 84481; 85025

== ENCOUNTER → 2023-05-21 | Outpatient (CLI) | payer MEDICAID, SELFPAY ==
--- NOTE | 2023-05-21 10:24 | BI_ITS ---
MAMMOGRAPHY - BILATERAL SCREENING REASON FOR EXAM: Female, 63 years old. Routine annual screening examination. PERTINENT HISTORY: Grandmother with breast cancer. Aunt with breast cancer. TECHNIQUE: Digital bilateral breast eli (3D mammographic acquisition) in the CC and MLO projections. 2-D mediolateral oblique (MLO) and craniocaudad (CC) views of both breasts were obtained. CAD: Full Field Digital Mammography with Computer Added Detection was performed. COMPARISON: Comparison is made with prior study May 12, 2022 and May 08, 2021. FINDINGS: Breast Composition: The breasts are heterogeneously dense, which may obscure small masses. There are no dominant masses or suspicious calcifications. Stable benign-appearing bilateral axillary lymph nodes. No other significant abnormalities are identified. There has been no significant change since the prior study. BI/SCRN MAMM (CAD)W/ELI BILAT IMPRESSION: Stable bilateral screening mammogram. Yearly follow-up mammogram recommended. (A) ASSESSMENT CATEGORY: BIRADS Category 2: Benign. A letter regarding these results will be sent to the patient by the facility within 30 days. Approximately 10% of breast cancers are not detected by mammography. A normal mammogram should not delay biopsy of a clinically suspicious abnormality. [id number] Electronically Signed: Cam Santana MD at 12:37 EDT ,
== END | disposition home or self-care (01) ==
LOC: OPBI 10:19
PROVIDERS: PCP Family Medicine; Referring Provider Family Medicine; Visit Provider Family Medicine
DX: Z12.31 Encounter for screening mammogram for malignant neoplasm of breast (principal)
CPT/HCPCS: 77063; 77067

== ENCOUNTER → 2023-05-25 | Outpatient (CLI) | payer MEDICAID, SELFPAY ==
[2023-05-27 10:09] LABS: HPV APTIMA, High Risk Negative (Negative)
== END | disposition home or self-care (01) ==
LOC: LABSPEC 11:43
PROVIDERS: PCP Family Medicine; Referring Provider Obstetrics & Gynecology; Visit Provider Obstetrics & Gynecology
DX: Z78.0 Asymptomatic menopausal state (principal)
CPT/HCPCS: 87624; 88175; G0145

== ENCOUNTER 2024-02-27 10:26 | Emergency (ER) | payer OTHER, SELFPAY ==
[2024-02-27 10:27] VITALS: BP 181/96; PULSE 70; RESP 16; TEMP 36.3; O2SAT 96; BMI 41.8
[2024-02-27] MEDS: predniSONE 20 MG Tablet 60 MG PO (10:47)
[2024-02-27] MEDS: HYDROmorphone 1 MG/ML Syringe IM (10:47)
--- NOTE | 2024-02-27 10:47 | ED.VIS.BACK ---
HPI History of Present Illness Chief Complaint: Other, Pain/Inj Detail of Chief Complaint: Atraumatic neck pain. Informant: patient Onset/Context/Timing Onset: Days Context: Gradual Onset Injury: lifting and bending Timing: Continuous Quality: Dull and Aching Location: - (Neck pain) Current Severity: Moderate Maximum Severity: Moderate Associated Symptoms Associated Symptoms: Tingling and - (Radiation to both arms.) Narrative Narrative: 63-year-old female history of degenerative disc disease with prior lumbar surgery but no prior neck surgery. Also history of diabetes and hypertension. Patient states since Wednesday evening she has had atraumatic neck pain with tingling in both arms. No bowel or bladder incontinence. Worse with movement. Also feels she may have some muscle spasm. Denies any fall or trauma. Recently has been moving furniture. Denies any fever. No weakness to her upper extremities. Prior similar symptoms: Yes Recent Illness/Hospitalization: No PFSH PFSH Medical History ADD (attention deficit disorder) Anxiety Shortness of breath on exertion Normal stress echocardiogram Post-menopausal Wears glasses Depression Thyroid disease High cholesterol Neuropathy Back pain Non-smoker CPAP (continuous positive airway pressure) dependence Sleep apnea History of echocardiogram History of stress test History of irregular heartbeat Family history of colon cancer Diabetes Hypothyroidism HTN (hypertension) Dyslipidemia History of depression Home Medications ?Medication ?Instructions ?Recorded ?Last Taken ?Type levothyroxine 75 mcg capsule 150 mcg PO DAILY 10/07/17 12/19/18 06:00 History simvastatin 20 mg tablet 40 mg PO QHS 10/07/17 Unknown History metformin 500 mg tablet,extended 500 mg PO BID 12/02/21 Unknown History release 24 hr dextroamphetamine-amphetamine 20 20 mg PO DAILY 05/25/23 Unknown History mg tablet (Adderall) dulaglutide 0.75 mg/0.5 mL 0.75 mg subcut QWEEK 05/25/23 Unknown History subcutaneous pen injector (Trulicity) fluoxetine 10 mg capsule (Prozac) 20 mg PO DAILY 05/25/23 Unknown History nystatin-triamcinolone 100,000 1 applic topical TID #15 grams 05/25/23 Unknown Rx unit/gram-0.1 % topical ointment metaxalone 800 mg tablet 800 mg PO TID #20 tabs 02/27/24 Unknown Rx prednisone 20 mg tablet 40 mg (2 x 20 mg) PO DAILY 9 days 02/27/24 Unknown Rx #18 tabs Allergy/AdvReac Type Severity Reaction Status Date / Time lisinopril Allergy Mild cough Verified 02/27/24 10:27 sulfadimethoxine Allergy Mild blisters Verified 02/27/24 10:27 Sulfa (Sulfonamide Allergy Rash Verified 02/27/24 10:27 Antibiotics) (sulfa drugs) Family History Brother Myocardial infarction Colon cancer Prostate cancer Father Prostate cancer Myocardial infarction Mother Myocardial infarction Alzheimer disease Sister CVA (cerebral vascular accident) Brother Myocardial infarction Brother Myocardial infarction Other Cancer Surgical History H/O oral surgery History of cardiac catheterization Hx of knee surgery Hx of colonoscopy s/p ablation [place] teeth extracted Previous back surgery Social History adopted: No household members: family current occupation: starting at [employer] pets and animals: Yes pets and animals: dog(s) history of recent travel: Yes details: [place] out of state: Yes sexually active: No Smoking Status: Never smoker alcohol intake: never substance use type: does not use caffeine: Yes (1 cup of coffee a day ) Type: coffee seatbelt use: always do you feel safe at home: Yes ROS ROS ED ROS Narrative Denies recent illness. Review of Systems ROS Unobtainable: Denies due to encephalopathy Constitutional Constitutional ED: Denies chills or fever(s) Eyes Eyes: Denies blurry vision ENT ENT ED: Denies ear pain Cardiovascular Cardiovascular: Denies chest pain Respiratory/Chest Respiratory/Chest: Denies dyspnea Gastrointestinal Gastrointestinal: Denies abdominal pain Genitourinary Genitourinary ED: Denies dysuria or hematuria Musculoskeletal Musculoskeletal: Reports neck pain; Denies arthralgias, back pain or myalgias Integumentary Denies abscess, Abrasions or rash Neurologic Neurologic: Denies headache(s) Psychiatric Psychiatric: Denies anxiety or depression Endocrine Endocrinology: Denies cold intolerance or heat intolerance Hematologic/Lymphatic Hematologic/Lymphatic: Denies easy bleeding, easy bruising or lymphadenopathy Allergic/Immunologic Allergic/Immunologic ED: Denies mouth swelling, tongue swelling or urticaria EXAM Physical Exam Narrative Exam Narrative: Well-appearing 63-year-old female. Vital signs are stable and afebrile. H EENT exam pupils round react to light. Normal speech. Neck has cervical muscle spasm on the left. Can do range of motion with discomfort. No bony tenderness. Trachea midline. Lungs clear to auscultation. Heart regular rhythm no murmur. Abdomen soft nontender. Moving all 4 extremities. Sensation intact. 5 out of 5 dog or horse racing official strength. Dorsi plantarflexion intact. No weakness. No muscle wasting. No cauda equina. Back nontender. Neurologically she is awake and alert with no focal motor deficits. No sensory loss. Const Vital Signs: 02/27/24 10:27 Temperature 97.3 F L Temperature Source Temporal Pulse Rate 70 Respiratory Rate 16 Blood Pressure 181/96 H Blood Pressure Mean 124 Pulse Ox 96 Oxygen Delivery Method Room Air Positive well nourished and well developed; Negative for cachectic, contractures or unkempt General Appearance ED: well developed and NAD; Negative for unkempt, cachectic, contractures or pallor Nutritional Appearance: Negative for cachectic HEENT Reports moist mucous membranes; Denies dry mucous membranes Negative for trauma or tenderness Mouth ED: No dry mucous membranes Mouth: No dry mucous membranes Eyes EOMs intact bilaterally Neck no lymphadenopathy, supple and no JVD Neck Narrative: Left-sided muscle spasm. General: tenderness Resp normal respiratory effort and clear to auscultation bilaterally Effort and Inspection: Negative for pain with movement Auscultation: Negative for rales, rhonchi or wheezes Cardio regular rate, regular rhythm, S1 normal heart sound, S2 normal heart sound and no murmurs Palpation: Negative for palpable S3 Rate: Negative for bradycardia or tachycardic Rhythm: Negative for abnormal rhythm Bruits: Negative for other GI normal to inspection, nondistended, normoactive bowel sounds, soft to palpation, non-tender, non-distended and no masses Inspection: Negative for abdominal distention Palpation: Negative for tender, guarding or rebound tenderness present Back/Spine normal to inspection and no thoracic nor lumbar tenderness General Back: Negative for CVA tenderness Cervical Spine: Negative for cervical spine tenderness Thoracic Spine / Upper Back: Negative for paraspinal muscle tenderness Lumbar Spine / Lower Back: Negative for ROM limited Extremity normal to inspection and no clubbing, cyanosis or edema General Extremety ED: Negative for edema or tenderness General Extremity: Negative for edema Neuro oriented x3 and no sensory deficits noted Sensorium / Orientation: alert; Negative for confused, lethargic or stuporous Motor Exam: strength 5/5 throughout Psych mental status grossly normal Appearance: Negative for unkempt Attitude: No agitated Mood & Affect: Negative for depressed, sad or tearful Skin no rashes or lesions noted and no wounds General Skin Exam: Negative for jaundice or pallor Lesions: No lesion noted Rashes: No rashes noted Trauma: Negative for abrasion Wounds: Negative for wounds noted MDM MDM MDM Narrative Medical decision making narrative: 63-year-old female prior L4-5 back surgery. Has had cervical disc problems in the past but never needed surgery. Last 3 days she has had atraumatic neck pain with tingling in her hands but no weakness after moving a lot of furniture at her home. No fever. Exam is benign. She has normal sensation and strength. There is no muscular wasting. Clinically this is a cervical disc with cervical radiculopathy she also has some mild muscle spasm on the left. She will be treated with IM dose of Dilaudid for pain. Prednisone for the next 10 days and to watch her blood sugars while on the prednisone. Skelaxin for muscle laxer. Follow-up with her primary care physician if not improving to discuss the possibility of a cervical MRI. She does not need that emergently at this time. Discharge Plan Triage Chief Complaint: Other, Pain/Inj ED Provider: Judson Glynn Dx/Rx/DC Orders Clinical Impression: Cervical radiculopathy, Acute neck pain, Cervical paraspinal muscle spasm, History of diabetes mellitus, History of degenerative disc disease Instructions: ED Neck Pain, ED Neck Spasm, No Trauma, ED Radiculopathy, Cervical Prescriptions: New prednisone 20 mg tablet 40 mg PO DAILY 9 Days Qty: 18 0RF metaxalone 800 mg tablet 800 mg PO TID Qty: 20 0RF No Action levothyroxine 75 mcg capsule 150 mcg PO DAILY simvastatin 20 mg tablet 40 mg PO QHS dextroamphetamine-amphetamine [Adderall] 20 mg tablet 20 mg PO DAILY Trulicity 0.75 mg/0.5 mL pen injector 0.75 mg subcut QWEEK nystatin-triamcinolone 100,000-0.1 unit/gram-% ointment 1 applic topical TID Qty: 15 4RF metformin 500 mg tablet extended release 24 hr 500 mg PO BID Patient Comments: TAKE 1 TABLET BY MOUTH TWICE A DAY fluoxetine [Prozac] 10 mg capsule 20 mg PO DAILY Primary Care Provider: Hermelinda Major Referrals: Hermelinda Major DO [Primary Care Provider] - 3-5 Days Activity Restrictions/Additional Instructions: The pain and numbness is most likely secondary to a swollen disc in your neck. You are going to be placed on prednisone 40 mg a day starting tomorrow for the next 9 days. We gave you a dose here in the emergency department. This may decrease the inflammation, numbness and pain. If it does not need to follow-up with your physician for further evaluation at this is not improving you may need an MRI of your neck. Skelaxin as a muscle relaxant 1 pill 3 times a day to help with the muscle spasm in your neck. Also hot shower, warm bath and massage. Watch your blood sugars closely because the prednisone will increase dose. Limited Motrin for pain. Follow-up with your doctor if not improving or return the emergency department if you develop weakness in your arms or significantly worsening pain. Print Language: Maltese Disposition Disposition: Home, Self Care
[2024-02-27] MEDS: Metaxalone 800 MG Tablet PO (10:50)
[2024-02-27 10:57] VITALS: BP 133/78; PULSE 65; RESP 18; TEMP 36.4; O2SAT 100
== END 2024-02-27 11:18 | disposition home or self-care (01) ==
PROVIDERS: Emergency Provider Emergency Medicine; PCP Family Medicine; Visit Provider Emergency Medicine
DX: M54.12 Radiculopathy, cervical region (principal); E11.40 Type 2 diabetes mellitus with diabetic neuropathy, unspecified; M62.830 Muscle spasm of back; I10 Essential (primary) hypertension; E78.00 Pure hypercholesterolemia, unspecified; M54.2 Cervicalgia
CPT/HCPCS: 96372; 99282

== ENCOUNTER → 2024-04-14 | Outpatient (CLI) | payer OTHER, SELFPAY ==
--- NOTE | 2024-04-14 13:58 | RAD_ITS ---
EXAM: XR CERVICAL SPINE, 6 VIEWS CLINICAL INDICATION: PAIN TECHNIQUE: Frontal, lateral and bilateral oblique views of the cervical spine. COMPARISON: No relevant prior studies available. FINDINGS: VERTEBRAE: Straightening of the usual lordotic curvature. DISC SPACES: Moderate disc space narrowing at C5-6 and C6-7 with moderate anterior and posterior spondylosis at C5-6 and mild spondylosis at C6-7. Small anterior-inferior osteophyte or ligamentous ossification at C4. No visible bony neural foraminal stenosis on the oblique views. SOFT TISSUES: Unremarkable. No prevertebral soft tissue widening. LUNG APICES: Clear. RAD/Cerv Spine 4 or 5 Views IMPRESSION: Moderate C5-C7 degenerative changes. Straightening of the usual lordotic curvature. No obviously acute findings. Electronically Signed: Audelia Randolph MD at 23:03 EDT ,
--- NOTE | 2024-04-14 14:00 | RAD_ITS ---
STUDY: X-RAY - THORACIC SPINE REASON FOR EXAM: Female, 64 years old. Pain, decreased range of motion TECHNIQUE: 3 view(s) of the thoracic spine were obtained. COMPARISON: None. FINDINGS: Normal kyphosis of the thoracic spine. There is a minimal dextroscoliosis apex at T6-7 There is multilevel endplate spondylosis of the thoracic vertebrae. There is multilevel disc space narrowing of the thoracic spine. The soft tissue structures are unremarkable. RAD/Thoracic Spine 3 Views IMPRESSION: Degenerative changes with a mild dextroscoliosis, no demonstrated fracture or suspicious osseous lesion Electronically Signed: Brian Shah MD at 11:26 EDT ,
== END | disposition home or self-care (01) ==
LOC: MTRAD 13:56
PROVIDERS: PCP Family Medicine; Referring Provider Nurse Practitioner Family; Visit Provider Nurse Practitioner Family
DX: M54.2 Cervicalgia (principal); M54.6 Pain in thoracic spine
CPT/HCPCS: 72050; 72072

== ENCOUNTER → 2024-06-12 | Outpatient (CLI) | payer OTHER, SELFPAY ==
[2024-06-12 12:12] LABS: Absolute Lymphocyte Count 1.88 X10^3/uL (0.83-4.51); Absolute Neutrophil Count 3.8 X10^3/uL (2.0-7.7); Basophil# 0.03 X10^3/uL; Basophil% 0.5 % (0-1); Eosinophil# 0.18 X10^3/uL; Eosinophils% 2.9 % (0-5); Hematocrit 39.5 % (37-47); Hemoglobin 12.8 g/dL (12.0-15.0); Lymphocyte # 1.88 X10^3/ul (0.83-4.51); Lymphocyte % 29.9 % (19-41); Mean Corp Hgb Conc 32.4 g/dL (32-36); Mean Corpuscular Hgb 29.7 pg (27.0-32.0); Mean Corpuscular Volume 91.6 fL (81-99); Mean Platelet Vol. 10.7 fl (6.2-12.0); Monocyte# 0.42 X10^3/uL; Monocyte% 6.7 % (0-10); NRBC Flagged by Analyzer 0 % (0-5); Neutrophil # 3.76 X10^3/uL (2.7-7.7); Neutrophil % 59.7 % (47-70); Platelet Count 207 K/mm3 (150-450); RBC Distribution Width CV 12.3 % (11.6-14.6); Red Blood Count 4.31 M/mm3 (4.2-5.4); White Blood Count 6.3 K/mm3 (4.4-11.0)
[2024-06-12 12:52] LABS: Vitamin D,25 Hydroxy 21.6 ng/mL
[2024-06-12 13:05] LABS: ALB/GLOB Ratio 1.1 RATIO (0.9-2.4); AST(SGOT) 26 U/L (15-37); Alanine Aminotransfer ALT/SGPT 23 U/L (13-56); Albumin, Serum 3.7 g/dL (3.2-5.0); Alkaline Phosphatase 110 U/L (45-117); Anion Gap 8 (5-15); BUN 19 mg/dL (7-18); BUN/Creat Ratio 19.4 RATIO (10-20); Calcium,Total 9.2 mg/dL (8.5-10.1); Chloride 106 mmol/L (98-107); Cholesterol 175 mg/dL (200); Creatinine, Serum 0.98 mg/dL (0.55-1.02); EST Glomerular Filtration Rate 61 mL/min (>60); Est Glom Filt Rate - Afr Amer 73 mL/min (>60); Free T3 2.1 pg/mL (2.18-3.98); Globulin 3.5 g/dL (2.2-4.2); Glucose 150 mg/dL (74-106); High Density Lipoprotein 38 mg/dL; Potassium 3.9 mmol/L (3.5-5.1); Protein, Total 7.2 g/dL (6.4-8.2); Sodium Level 140 mmol/L (136-145); T4 Free Direct 1.12 ng/dL (0.76-1.46); Triglycerides 186 mg/dL; Very Low Density Lipoprotein 37 mg/dL (5-40)
== END | disposition home or self-care (01) ==
LOC: BFHLAB 10:52
PROVIDERS: PCP Nurse Practitioner Family; Referring Provider Nurse Practitioner Family; Visit Provider Nurse Practitioner Family
DX: Z00.01 Encounter for general adult medical examination with abnormal findings (principal); E03.9 Hypothyroidism, unspecified; E55.9 Vitamin D deficiency, unspecified
CPT/HCPCS: 36415; 80053; 80061; 82306; 84439; 84443; 84481; 85025

== ENCOUNTER → 2024-12-29 | Outpatient (CLI) | payer MEDICAID, SELFPAY ==
[2024-12-29 15:21] LABS: Absolute Lymphocyte Count 1.61 X10^3/uL (0.83-4.51); Absolute Neutrophil Count 5.1 X10^3/uL (2.0-7.7); Basophil# 0.04 X10^3/uL; Basophil% 0.6 % (0-1); Eosinophils% 2.8 % (0-5); Hematocrit 41.2 % (37-47); Hemoglobin 13.9 g/dL (12.0-15.0); Lymphocyte # 1.61 X10^3/ul (0.83-4.51); Lymphocyte % 22.1 % (19-41); Mean Corp Hgb Conc 33.7 g/dL (32-36); Mean Corpuscular Hgb 30.3 pg (27.0-32.0); Mean Corpuscular Volume 89.8 fL (81-99); Mean Platelet Vol. 11.2 fl (6.2-12.0); Monocyte# 0.36 X10^3/uL; NRBC Flagged by Analyzer 0 % (0-5); Neutrophil # 5.05 X10^3/uL (2.7-7.7); Neutrophil % 69.4 % (47-70); Platelet Count 215 K/mm3 (150-450); RBC Distribution Width CV 12.2 % (11.6-14.6); RBC Distribution Width SD 39.9 fl (35.1-43.9); Red Blood Count 4.59 M/mm3 (4.2-5.4); White Blood Count 7.3 K/mm3 (4.4-11.0)
[2024-12-29 16:37] LABS: Hemoglobin A1c 9.9 % (<=5.6)
[2024-12-29 16:38] LABS: ALB/GLOB Ratio 1.4 RATIO (0.9-2.4); AST(SGOT) 36 U/L (<=31); Alanine Aminotransfer ALT/SGPT 22 U/L (<=34); Albumin, Serum 4.3 g/dL (3.4-4.8); Alkaline Phosphatase 109 U/L (35-104); Anion Gap 13 (5-15); BUN 14 mg/dL (4-19); BUN/Creat Ratio 15.9 RATIO (10-20); Calcium,Total 9.7 mg/dL (7.6-11.0); Carbon Dioxide 23.9 mmol/L (21.0-32.0); Chloride 97 mmol/L (98-108); Cholesterol 205 mg/dL (<=200); Creatinine, Serum 0.85 mg/dL (0.70-1.20); EST Glomerular Filtration Rate 77 (>60); Glucose 286 mg/dL (70-99); High Density Lipoprotein 37 mg/dL; Low Density Lipoprotein Calc. 116 mg/dL; Potassium 4.5 mmol/L (3.3-5.1); Protein, Total 7.3 g/dL (5.9-8.4); Sodium Level 134 mmol/L (133-145); Total Bilirubin 0.67 mg/dL (0.00-1.30); Triglycerides 257 mg/dL; Very Low Density Lipoprotein 51 mg/dL (5-40)
[2024-12-29 17:08] LABS: Iron 76 ug/dL (50-170); Magnesium 1.9 mg/dL (1.5-2.2)
[2024-12-29 17:09] LABS: Ferritin 182 ng/mL (22-378); Free T3 2.9 pg/mL (2.18-3.98); Thyroid Stim Hormone (TSH) 0.069 uIU/mL (0.300-4.200); Vitamin B12 500 pg/mL (180-914); Vitamin D,25 Hydroxy 18.4 ng/mL (30-100)
== END | disposition home or self-care (01) ==
LOC: BFHLAB 11:50
PROVIDERS: PCP Nurse Practitioner Family; Visit Provider Nurse Practitioner Family
DX: Z00.01 Encounter for general adult medical examination with abnormal findings (principal); E03.9 Hypothyroidism, unspecified; E55.9 Vitamin D deficiency, unspecified; R53.83 Other fatigue
CPT/HCPCS: 36415; 80053; 80061; 82306; 82607; 82728; 83036; 83540; 83735; 84439; 84443; 84481; 85025

== ENCOUNTER 2025-07-30 09:25 | Outpatient (RCR) | payer MEDICARE, SELFPAY | END 2025-08-12 23:59 | LOC: NS 09:25 | PROVIDERS: PCP Nurse Practitioner Family; Referring Provider Nurse Practitioner Family; Visit Provider Nurse Practitioner Family | DX: Z71.3 Dietary counseling and surveillance (principal); E11.9 Type 2 diabetes mellitus without complications | CPT/HCPCS: 97802 ==